=== PATIENT | female | born 1960 | race Caucasian/White ===

== ENCOUNTER 2022-12-08 12:45 | Emergency (ER) | payer OTHER, SELFPAY ==
[2022-12-08] VITALS (25 sets, daily range): BP systolic 106–156; BP diastolic 55–86; PULSE 89–118; RESP 16–24; TEMP 37; O2SAT 95–99; BMI 29.0
--- NOTE | 2022-12-08 13:10 | DI.RAD.S_ITS ---
PROCEDURE: XR CHEST 1V INDICATIONS: Shortness of breath TECHNIQUE: One view of the chest was acquired. COMPARISON: None. FINDINGS: Surgical changes and devices: None. Lungs and pleura: Lungs are clear. No pleural effusions or pneumothorax. Mediastinum: Mediastinal contours appear normal. Heart size is normal. Bones and chest wall: No suspicious bony lesions. Overlying soft tissues appear unremarkable. IMPRESSION: Portable chest within normal limits for age. Dictated by: Zakiya Grier MD, PhD on 12/08/2022 at 13:23 Approved by: Zakiya Grier MD, PhD on 12/08/2022 at 13:23
[2022-12-08 13:38] LABS: Add Manual Diff / Slide Review NO; Basophils Absolute Auto 0 /uL (0-100); Basophils Percent Auto 0.3 % (0-2); Eosinophils Absolute Auto 0 /uL (0-450); Hemoglobin 12.5 g/dL (12.0-16.0); Lymphocytes Absolute Auto 1100 /uL (1100-4500); Lymphocytes Percent Auto 32.3 % (25-40); Mean Corpuscular HGB Conc 33.7 % (30-36); Mean Corpuscular Hemoglobin 28.7 PG (26-34); Monocytes Absolute Auto 700 /uL (0-900); Monocytes Percent Auto 20.2 % (3-14); Neutrophils Absolute Auto 1600 /uL (1500-7000); Neutrophils Percent Auto 46.2 % (50-75); Platelet Count 199 X10^3/uL (150-400); Red Blood Cell Count 4.36 X10^6/uL (4.0-5.2); Red Cell Distribution Width 11.8 % (11.6-14.8); White Blood Cell Count 3.5 X10^3/uL (4.5-11.0)
[2022-12-08 13:51] LABS: INR 1.1 (0.9-1.3); Prothrombin Time 13.1 SECONDS (10.1-12.7)
[2022-12-08 13:56] LABS: Lactate (Lactic Acid) 1.9 mmol/L (0.7-2.1)
[2022-12-08 13:57] LABS: Alanine Aminotransferase 56 IU/L (<35); Albumin 3.6 g/dL (3.5-5.0); Albumin Globulin Ratio 1.2 (1.0-2.8); Alkaline Phosphatase 78 U/L (38-126); Aspartate Aminotransferase 41 IU/L (14-36); BUN Creatinine Ratio 40.5 (6-22); Blood Urea Nitrogen 17 mg/dL (7-17); Calcium 9.9 mg/dL (8.4-10.2); Carbon Dioxide 22 mmol/L (22-32); Chloride 108 mmol/L (98-107); Estimated Glomerular Filt Rate > 60 mL/min (>60); Globulin 3.1 g/dL (1.7-4.1); Glucose 132 mg/dL (80-110); HEMOLYSIS < 15 (0-50); Potassium 3.9 mmol/L (3.4-5.1); Sodium 138 mmol/L (137-145); Total Protein 6.7 g/dL (6.3-8.2)
[2022-12-08 14:09] LABS: NT-proBNP (BNP-Adult 18+) 224 pg/mL (<125); Troponin I < 0.012 ng/mL (0.01-0.034)
--- NOTE | 2022-12-08 16:01 | PC.NURSE ---
Addendum entered by Dulce Mccarthy R.N. 12/08/22 16:02: ... over the past couple weeks. States she is primarily SOB with exertion but states she is breathing faster/harder recently while at rest. Original Note: Pt describes a feeling of heaviness in her lower extremities and SOB when exerting herself over the past coup,e
--- NOTE | 2022-12-08 17:20 | ED.SOB ---
HPI - SOB/Dyspnea General Chief Complaint: Shortness of Breath/Dyspnea Stated Complaint: SOB, Heavy legs, Low energy Time Seen by Provider: 12/08/22 17:06 Source: patient Mode of arrival: Ambulatory Limitations: no limitations History of Present Illness HPI Narrative: 62-year-old male with no reported medical issues but patient does not see a doctor annually, she describes dyspnea with exertion, no chest pain or pressure, heavy legs and fatigue. Patient states it is worse with exertion but she notes that even stepping up 1 or 2 steps makes her legs feel heavy and weak. She denies any chest pain or pressure, no syncope, no lightheadedness. No nausea or vomiting, no diaphoresis. Patient denies any back pain no numbness tingling or weakness laterally in her lower extremities. She has not had any sensation changes. No loss of bowel or bladder control. No dysuria urgency or frequency. No diarrhea constipation that is new. Patient states shortness of breath has been very slow and is more with exertion such as up a hill. She does not appreciate it when he goes up 1 or 2 steps to her trailer but she does appreciate the weakness in her legs. Patient states she does not take any daily medications. No prior surgeries. No known drug allergies. Quit tobacco 8 months ago, drinks 1 or 2 cocktails 3 or 4 times weekly. No recreational drugs no IV drugs. They live in [place], [place]. Are visiting the area until Monday or Monday. Related Data Previous Rx's Medication Instructions Recorded prednisone 10 mg tablets in a dose See Rx Instructions PO .COMPLEX 12/08/22 pack #21 ea Allergies Allergy/AdvReac Type Severity Reaction Status Date / Time No Known Drug Allergies Allergy Verified 12/08/22 13:07 Review of Systems Review of Systems ROS Unobtainable: All systems reviewed & are unremarkable except as noted in HPI and below Patient History Social History Smoking Status: Former smoker Smoking Status: Former smoker alcohol intake frequency: a few times a week Substance Use Type: does not use Exam Narrative Exam Narrative: GENERAL: Alert and oriented x three, well-appearing female in mild distress. HEENT: Head normocephalic, atraumatic, EOMI, pupils reactive, face symmetric, moist mucous membranes NECK: Supple, full range of motion CARDIOVASCULAR: Regular rate and rhythm without murmurs, rubs or gallops. No JVD. No swelling bilateral lower extremities. RESPIRATORY: Breath sounds equal bilaterally, no wheezes rales or rhonchi. No tachypnea. No accessory muscle use. ABDOMEN: Soft, nontender. Normoactive bowel sounds all 4 quadrants. No guarding or rebound, rigidity, no mass : No CVA tenderness BACK: No cervical, thoracic or lumbar vertebral point tenderness. Patient has normal range of motion. Patient's gait is normal. Rectal exam is deferred. Muscle strength is 5/5 in lower extremities, DTRs are 2/4 and lower extremities. Dorsalis pedis and tibialis pulses are 2+ and lower extremities and cap refill less than 2 seconds. Sensation is intact in the lower extremities. EXTREMITIES: Normal range of motion, no clubbing or edema. Neurovascularly intact NEUROLOGICAL: Cranial nerves II through XII grossly intact. Moving all extremities SKIN: Warm, dry, no petechiae, no rashes or lesions. Initial Vital Signs Initial Vital Signs: Vital Signs Temperature 98.6 F 12/08/22 13:07 Pulse Rate 103 H 12/08/22 13:07 Respiratory Rate 16 12/08/22 13:07 Blood Pressure 129/68 12/08/22 13:07 Pulse Oximetry 98 12/08/22 13:07 Oxygen Delivery Method Room Air 12/08/22 13:07 Course Orders Ordered: ED Orders 12/08/22 13:10 XR chest 1V Stat Measure peak expiratory flow ONCE RT Consult Eval and Treat NOW 12/08/22 13:20 EKG-12 Lead Stat 12/08/22 13:28 Complete Blood Count AUTO DIFF Stat Comprehensive Metabolic Panel Stat Lactate (Lactic Acid) Stat NT-proBNP (BNP-Adult 18+) Stat Prothrombin Time INR Stat Troponin I Stat 12/08/22 17:45 CT lumbar spine wo con Stat 12/08/22 18:05 Trop I [Troponin I] Stat Vital Signs Vital signs: Vital Signs - 8 hr 12/08/22 13:07 12/08/22 13:50 12/08/22 13:50 Temperature 98.6 F Pulse Rate 103 H 93 H 97 H Respiratory Rate 16 18 Blood Pressure 129/68 136/74 Pulse Oximetry 98 99 97 Oxygen Delivery Method Room Air Room Air 12/08/22 13:50 12/08/22 14:00 12/08/22 14:00 Temperature Pulse Rate 90 Respiratory Rate Blood Pressure 136/74 111/59 L Pulse Oximetry 98 Oxygen Delivery Method 12/08/22 14:15 12/08/22 14:15 12/08/22 14:30 Temperature Pulse Rate 90 Respiratory Rate Blood Pressure 122/67 118/61 Pulse Oximetry 97 Oxygen Delivery Method 12/08/22 14:30 12/08/22 14:45 12/08/22 14:45 Temperature Pulse Rate 90 89 Respiratory Rate Blood Pressure 117/59 L Pulse Oximetry 96 96 Oxygen Delivery Method 12/08/22 15:00 12/08/22 15:00 12/08/22 15:15 Temperature Pulse Rate 90 91 H Respiratory Rate Blood Pressure 116/64 Pulse Oximetry 96 98 Oxygen Delivery Method 12/08/22 15:15 12/08/22 15:30 12/08/22 15:30 Temperature Pulse Rate 92 H Respiratory Rate Blood Pressure 108/58 L 111/55 L Pulse Oximetry 95 Oxygen Delivery Method 12/08/22 15:45 12/08/22 15:45 12/08/22 16:00 Temperature Pulse Rate 93 H Respiratory Rate Blood Pressure 128/62 114/58 L Pulse Oximetry 97 Oxygen Delivery Method 12/08/22 16:00 12/08/22 16:15 12/08/22 16:15 Temperature Pulse Rate 91 H 90 Respiratory Rate Blood Pressure 125/58 L Pulse Oximetry 97 99 Oxygen Delivery Method 12/08/22 16:30 12/08/22 16:30 12/08/22 16:45 Temperature Pulse Rate 91 H 91 H Respiratory Rate Blood Pressure 111/58 L Pulse Oximetry 97 97 Oxygen Delivery Method 12/08/22 16:45 12/08/22 17:00 12/08/22 17:00 Temperature Pulse Rate 89 Respiratory Rate Blood Pressure 106/56 L 120/62 Pulse Oximetry 98 Oxygen Delivery Method 12/08/22 17:15 12/08/22 17:15 12/08/22 17:30 Temperature Pulse Rate 90 Respiratory Rate Blood Pressure 118/63 131/75 Pulse Oximetry 99 Oxygen Delivery Method 12/08/22 17:30 12/08/22 17:46 12/08/22 17:46 Temperature Pulse Rate 99 H 104 H Respiratory Rate Blood Pressure 121/66 Pulse Oximetry 97 97 Oxygen Delivery Method 12/08/22 18:02 12/08/22 18:20 12/08/22 18:20 Temperature Pulse Rate 98 H 95 H Respiratory Rate Blood Pressure 136/66 Pulse Oximetry 98 99 Oxygen Delivery Method 12/08/22 18:22 12/08/22 18:22 12/08/22 18:30 Temperature Pulse Rate 93 H Respiratory Rate 20 Blood Pressure 129/58 L 115/55 L Pulse Oximetry 98 Oxygen Delivery Method 12/08/22 18:30 12/08/22 18:45 12/08/22 18:45 Temperature Pulse Rate 89 108 H Respiratory Rate 20 20 Blood Pressure 115/64 Pulse Oximetry 97 97 Oxygen Delivery Method 12/08/22 19:00 12/08/22 19:00 12/08/22 19:15 Temperature Pulse Rate 118 H 99 H Respiratory Rate 22 24 Blood Pressure 129/74 Pulse Oximetry 99 98 Oxygen Delivery Method 12/08/22 19:15 Temperature Pulse Rate Respiratory Rate Blood Pressure 156/86 H Pulse Oximetry Oxygen Delivery Method MDM - SOB/Dyspnea Lab Data 12/08/22 13:28 12/08/22 13:28 Labs: Lab Results 12/08/22 12/08/22 12/08/22 Range/Units 13:28 13:28 13:28 WBC 3.5 L (4.5-11.0) X10^3/uL RBC 4.36 (4.0-5.2) X10^6/uL Hgb 12.5 (12.0-16.0) g/dL Hct 37.0 (36-46) % MCV 85.0 (80-100) fL MCH 28.7 (26-34) PG MCHC 33.7 (30-36) % RDW 11.8 (11.6-14.8) % Plt Count 199 (150-400) X10^3/uL Neut % (Auto) 46.2 L (50-75) % Lymph % (Auto) 32.3 (25-40) % [place] % (Auto) 20.2 H (3-14) % Eos % (Auto) 1.0 L (2-4) % Baso % (Auto) 0.3 (0-2) % Neut # (Auto) 1600 (9931-5118) /uL Lymph # (Auto) 1100 (1652-4286) /uL [place] # (Auto) 700 (0-900) /uL Eos # (Auto) 0 (0-450) /uL Baso # (Auto) 0 (0-100) /uL PT 13.1 H (10.1-12.7) SECONDS INR 1.1 (0.9-1.3) Sodium 138 (137-145) mmol/L Potassium 3.9 (3.4-5.1) mmol/L Chloride 108 H (98-107) mmol/L Carbon Dioxide 22 (22-32) mmol/L BUN 17 (7-17) mg/dL Creatinine 0.42 L (0.52-1.04) mg/dL Estimated GFR > 60 (>60) mL/min BUN/Creatinine Ratio 40.5 H (6-22) Glucose 132 H (80-110) mg/dL Lactate (0.7-2.1) mmol/L Calcium 9.9 (8.4-10.2) mg/dL Total Bilirubin 1.0 (0.2-1.3) mg/dL AST 41 H (14-36) IU/L ALT 56 H (<35) IU/L Alkaline Phosphatase 78 (38-126) U/L Troponin I < 0.012 (0.01-0.034) ng/mL NT-Pro-B Natriuret Pep 224 H (<125) pg/mL Total Protein 6.7 (6.3-8.2) g/dL Albumin 3.6 (3.5-5.0) g/dL Globulin 3.1 (1.7-4.1) g/dL Albumin/Globulin Ratio 1.2 (1.0-2.8) 12/08/22 12/08/22 Range/Units 13:28 18:05 WBC (4.5-11.0) X10^3/uL RBC (4.0-5.2) X10^6/uL Hgb (12.0-16.0) g/dL Hct (36-46) % MCV (80-100) fL MCH (26-34) PG MCHC (30-36) % RDW (11.6-14.8) % Plt Count (150-400) X10^3/uL Neut % (Auto) (50-75) % Lymph % (Auto) (25-40) % [place] % (Auto) (3-14) % Eos % (Auto) (2-4) % Baso % (Auto) (0-2) % Neut # (Auto) (0961-6044) /uL Lymph # (Auto) (7779-2029) /uL [place] # (Auto) (0-900) /uL Eos # (Auto) (0-450) /uL Baso # (Auto) (0-100) /uL PT (10.1-12.7) SECONDS INR (0.9-1.3) Sodium (137-145) mmol/L Potassium (3.4-5.1) mmol/L Chloride (98-107) mmol/L Carbon Dioxide (22-32) mmol/L BUN (7-17) mg/dL Creatinine (0.52-1.04) mg/dL Estimated GFR (>60) mL/min BUN/Creatinine Ratio (6-22) Glucose (80-110) mg/dL Lactate 1.9 (0.7-2.1) mmol/L Calcium (8.4-10.2) mg/dL Total Bilirubin (0.2-1.3) mg/dL AST (14-36) IU/L ALT (<35) IU/L Alkaline Phosphatase (38-126) U/L Troponin I < 0.012 (0.01-0.034) ng/mL NT-Pro-B Natriuret Pep (<125) pg/mL Total Protein (6.3-8.2) g/dL Albumin (3.5-5.0) g/dL Globulin (1.7-4.1) g/dL Albumin/Globulin Ratio (1.0-2.8) Imaging Data Chest x-ray: Radiologist's Impression: [address] [address] XRay Report Signed Patient: Stephanie Álvarez MR#: [id number] : 1960 Acct:[id number] Age/Sex: 62 / F Date of Service: 12/08/22 Loc: ED Accession Number: [id number] ?? Procedure: XR chest 1V Ordering Provider: Kiara Vanegas D.O. PROCEDURE:? XR CHEST 1V ? INDICATIONS:? Shortness of breath ? TECHNIQUE:? One view of the chest was acquired.? ? COMPARISON:? None. ? FINDINGS:? ? Surgical changes and devices:? None.? ? Lungs and pleura:? Lungs are clear.? No pleural effusions or pneumothorax.? ? Mediastinum:? Mediastinal contours appear normal.? Heart size is normal.? ? Bones and chest wall:? No suspicious bony lesions.? Overlying soft tissues appear unremarkable.? ? ? IMPRESSION:? Portable chest within normal limits for age. ? ? Dictated by: Zakiya Grier MD, PhD on 12/08/2022 at 13:23 ? ? Approved by: Zakiya Grier MD, PhD on 12/08/2022 at 13:23 [facility] CT: Radiologist's Impression: [address] [address] [address] Scan Report Signed Patient: Stephanie Álvarez MR#: [id number] : 1960 Acct:[id number] Age/Sex: 62 / F Date of Service: 12/08/22 Loc: ED Accession Number: [id number] ?? Procedure: CT lumbar spine wo con Ordering Provider: Kiara Vanegas D.O. PROCEDURE:? CT LUMBAR SPINE WO CON ? INDICATIONS:? leg weakness with 1.2 steps ? TECHNIQUE:? Noncontrast 3 mm thick sections acquired from the T12 level to the sacrum.? Sagittal and coronal reformats were constructed.? For radiation dose reduction, the following was used:? automated exposure control.? ? COMPARISON:? None. ? FINDINGS:? Image quality:? Excellent.? ? Bones:? There is normal bony alignment.? No acute vertebral body compression fractures.? No suspicious lytic or blastic bony lesions.? No pars defects.? ? T12-L1:? Moderate disc height loss. ? L1-L2:? Moderate disc height loss with disc osteophyte complex and broad-based disc bulge. ? L2-L3:? Broad-based disc bulge, mild ligamentum flavum hypertrophy and epidural lipomatosis. ? L3-L4:? Right subarticular disc protrusion, epidural lipomatosis, mild facet hypertrophy and mild ligamentum flavum hypertrophy.? This results in mild bilateral neural foraminal narrowing and mild spinal canal narrowing.? Moderate disc height loss. ? L4-L5:? Broad-based disc bulge with superimposed central protrusion.? Mild facet hypertrophy, ligamentum flavum hypertrophy and epidural lipomatosis causing [id number] spinal canal narrowing. ? L5-S1:? Ligamentum flavum hypertrophy, left greater than right facet arthrosis and anterior and posterior disc osteophyte complex.? Moderate disc height loss. ? Soft tissues:? No retroperitoneal masses or hematomas.? Visualized aorta is normal in caliber.? ? ? IMPRESSION:? New line multilevel degenerative disc disease and facet arthrosis.? This is most prominent at L3-4 and L4-5.? No severe spinal canal or neural foraminal narrowing. ? ? Dictated by: Andrew Ruelas M.D. on 12/08/2022 at 18:40 ? ? Approved by: Andrew Ruelas M.D. on 12/08/2022 at 18:48?? 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 EKG shows sinus rhythm 99 rate, OH 152 QRS is 78 QTC [address] No acute [address] elevation, nonspecific T-wave inverted in lead 3 and AVF. No other ST segment changes noted. MDM Narrative Medical decision making narrative: 62-year-old female who presents with complaint of shortness of breath, patient states no chest pain or pressure. It is worse with exertion. Patient has been 98% room air, did have a heart rate in the 103 range. Patient states it has been slowly worsening over time, no long distance travel, she is not anticoagulated. She denies any chest pain or pressure she also notes some weakness in her legs she describes it as worse with exertion going up steps but even 1 or 2 steps bothers her but does not bother her breathing. Patient states no sensation changes, no back change no lateralizing weakness she can move everything normally but has just noticed a general weakness in her legs. Patient's labs show white count 3.5, normal hematocrit, normal platelets, monocytes are elevated at 20, INR is negative, chloride 108 with normal electrolytes, normal BUN, glucose 132- lactate, bilirubin is 1 with AST ALT of 4156 troponins negative with a BNP of 2 2 4. Chest x-ray shows no acute change. Troponin was repeated. EKG shows been T-wave inversion in lead 3 AVF but no priors for comparison. Discussed with patient extremity fatigue were weakness maybe related to her dyspnea and discuss stress testing. She is not had any back pain, claudication symptoms other than generalized weakness but does not require really any exertion to have weakness so CT L-spine was obtained although no other acute neurologic changes. CT imaging shows new multilevel degenerative disc disease and facet arthrosis most prominent L3-4 and L4-5. No severe spinal canal or foraminal narrowing. Patient does have some disc bulge multiple levels with superimposed central protrusion at L4-5. Patient's neuro exam is overall reassuring. Discussed with patient might try a short course of oral steroid to see if this improves her symptoms but she does need follow-up with orthopedic surgery. Repeat troponin is negative, patient does not have any chest pain or pressure does have shortness of breath with exertion. Discussed with patient would like to keep her overnight for observation and further workup. She does not wish to stay and politely declines We did discuss risks versus benefits I think she would benefit from stress testing or further evaluation for blood clots or other causes discussed with patient she needs more workup. She is up ambulating about the room appears stable overall. We did review her L-spine CT findings. She states she will call 1st thing in the morning to set follow-up for further cardiac, embolic lung workup and discussed there are changes on her lumbar spine that might cause weakness although typically would expect pain or numbness which she is not describing today. Patient was provided a disc of her images. Discharge Plan Departure Patient Disposition: Home Clinical Impression: Weakness of both lower limbs, Dyspnea Instructions: DI for Shortness of Breath Activity Restrictions/Additional Instructions: Please follow up with orthopedic surgery, your imaging does show changes in the lower back there is some changes that could cause pressure on the nerves causing weakness with moderate spinal canal narrowing. Disc is included with your images. You should be seen for further workup your dyspnea, a clear cause was not found today. We did discuss staying overnight for observation and further workup but you have elected to return home today. Please follow-up in the short term for further workup including possible echo/stress testing. Call in the morning to set up follow up. Please take steroids once daily until gone. Prescription sent to [facility] in [place]. Please return for rapidly worsening symptoms, lightheadedness or passing out increasing shortness of breath, chest pain or pressure, new weakness, loss of sensation, rapidly worsening pain or other new or concerning changes. Prescriptions: New prednisone 10 mg tablets,dose pack See Rx Instructions .ROUTE .COMPLEX Qty: 21 0RF Rx Instructions: Take 60 mg p.o. x1 day, then 50 mg p.o. x1 day, then 40 mg p.o. x1 day, then 30 mg p.o. x1 day, then 20 mg p.o. x1 day, then 10 mg p.o. x1 day Referrals: Mitali Shane MD [Physician] - Miscellaneous,MD Ilsa [Primary Care Provider] - Stand Alone Forms: Patient Portal/API
--- NOTE | 2022-12-08 17:45 | DI.CT.S_ITS ---
PROCEDURE: CT LUMBAR SPINE WO CON INDICATIONS: leg weakness with 1.2 steps TECHNIQUE: Noncontrast 3 mm thick sections acquired from the T12 level to the sacrum. Sagittal and coronal reformats were constructed. For radiation dose reduction, the following was used: automated exposure control. COMPARISON: None. FINDINGS: Image quality: Excellent. Bones: There is normal bony alignment. No acute vertebral body compression fractures. No suspicious lytic or blastic bony lesions. No pars defects. T12-L1: Moderate disc height loss. L1-L2: Moderate disc height loss with disc osteophyte complex and broad-based disc bulge. L2-L3: Broad-based disc bulge, mild ligamentum flavum hypertrophy and epidural lipomatosis. L3-L4: Right subarticular disc protrusion, epidural lipomatosis, mild facet hypertrophy and mild ligamentum flavum hypertrophy. This results in mild bilateral neural foraminal narrowing and mild spinal canal narrowing. Moderate disc height loss. L4-L5: Broad-based disc bulge with superimposed central protrusion. Mild facet hypertrophy, ligamentum flavum hypertrophy and epidural lipomatosis causing [id number] spinal canal narrowing. L5-S1: Ligamentum flavum hypertrophy, left greater than right facet arthrosis and anterior and posterior disc osteophyte complex. Moderate disc height loss. Soft tissues: No retroperitoneal masses or hematomas. Visualized aorta is normal in caliber. IMPRESSION: New line multilevel degenerative disc disease and facet arthrosis. This is most prominent at L3-4 and L4-5. No severe spinal canal or neural foraminal narrowing. Dictated by: Andrew Ruelas M.D. on 12/08/2022 at 18:40 Approved by: Andrew Ruelas M.D. on 12/08/2022 at 18:48
[2022-12-08 18:41] LABS: Troponin I < 0.012 ng/mL (0.01-0.034)
== END 2022-12-08 19:23 | disposition home or self-care (01) ==
PROVIDERS: Emergency Provider Emergency Medicine
DX: R53.1 Weakness (principal); R06.00 Dyspnea, unspecified
CPT/HCPCS: 36415; 71045; 72131; 80053; 83605; 83880; 84484; 85025; 85610; 93005; 93010; 99284